=== PATIENT | female | born 1995 | race Caucasian/White ===

== ENCOUNTER 2024-04-14 19:08 | Emergency (ER) | payer OTHER ==
[~2024-04-14] VITALS: Ht 154.9 cm; Wt 73.0 kg
[2024-04-14 19:30] VITALS: BP_SYST 123; PULSE 83; RESP 18; TEMP 98.2; O2SAT 97
[2024-04-14] MEDS ORDERED: AMOX-423 PO (20:30)
[2024-04-14] MEDS ORDERED: IBUP-1969 PO (20:30)
[2024-04-14 20:36] VITALS: BP_SYST 123; PULSE 83; RESP 18; TEMP 98.2; O2SAT 97
== END 2024-04-14 20:35 | disposition home or self-care (01) ==
LOC: SED 19:08
DX: S61.233A Puncture wound without foreign body of left middle finger without damage to nail, initial encounter (principal); S61.230A Puncture wound without foreign body of right index finger without damage to nail, initial encounter; S61.232A Puncture wound without foreign body of right middle finger without damage to nail, initial encounter; W55.01XA Bitten by cat, initial encounter; Y93.89 Activity, other specified; Y92.89 Other specified places as the place of occurrence of the external cause; Y99.8 Other external cause status
CPT/HCPCS: 99283